=== PATIENT | male | born 1985 | race Caucasian/White ===

== ENCOUNTER → 2020-11-11 08:57 | Outpatient (CLI) | payer OTHER, SELFPAY ==
--- NOTE | ~2020-11-11 | US_ITS ---
US soft tissue chest DATE: 11/11/2020 09:14 INDICATION: Left medial left chest for 6 months. TECHNIQUE: High-resolution ultrasound imaging and color flow imaging targeted at the area of anterior chest lump COMPARISON: None FINDINGS: There is a 1.2 x 0.5 x 1.2 cm circumscribed parallel hyperechoic subcutaneous medial left c hest wall lesion at the area of clinical complaint, most consistent with benign lipoma. There is no i nternal vascularity. IMPRESSION: Lipoma of medial anterior chest wall Reviewed, dictated and finalized at [facility]. Reviewed, dictated and finalized at [facility].
== END ==
DX: D17.1 Benign lipomatous neoplasm of skin and subcutaneous tissue of trunk (principal); R52 Pain, unspecified
CPT/HCPCS: 76604

== ENCOUNTER → 2021-02-05 07:17 | Outpatient (CLI) | payer OTHER, SELFPAY ==
[2021-02-05 19:27] LABS: SARS-CoV-2 RNA PCR Negative
== END ==
PROVIDERS: PCP Internal Medicine; Visit Provider Internal Medicine
DX: Z01.812 Encounter for preprocedural laboratory examination (principal); Z20.822 Contact with and (suspected) exposure to COVID-19
CPT/HCPCS: C9803; U0003; U0005

== ENCOUNTER → 2022-08-15 15:19 | Outpatient (CLI) | payer OTHER, SELFPAY ==
--- NOTE | ~2022-08-15 | XR_ITS ---
EXAM: XR finger 5th RT min 2V DATE: 08/15/2022 15:44 HISTORY: pain after accidental trauma . COMPARISON: None available. FINDINGS: Normal mineralization. Subtle cortical irregularity seen only in the oblique view Subcorti simón cystic changes over the central and distal aspect of the right fifth middle phalange. Old healed dorsal avulsion fracture. No lytic or blastic lesion. Mild degenerative change at the right DIP joint , presumably posttraumatic. No erosion or periosteal change. Soft tissues within normal limits. 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 Reviewed, dictated and finalized at 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
== END ==
PROVIDERS: PCP Internal Medicine; Visit Provider Internal Medicine
DX: M79.644 Pain in right finger(s) (principal)
CPT/HCPCS: 73140